=== PATIENT | male | born 1950 | race Caucasian/White ===

== ENCOUNTER 2019-02-26 00:55 | Day surgery (SDC) | payer MEDICARE, BC ==
[2019-02-26] VITALS (12 sets, daily range): BP systolic 105–144; BP diastolic 68–97
[~2019-02-26] VITALS: Ht 185.4 cm; Wt 94.3 kg
[~2019-02-26 00:55] MED LIST: ASPI-1471 PO; CEP500 PO; CINN500C12 PO; CYAN500T54 PO; EZE10 PO; FINA1TAB7 PO; FINA5TAB67 PO; FLAX SEED; GINK1TAB2 PO; GLUC100026 PO; LUTE6CAP11 PO; MULT1TAB64 PO; MULTI VIT; OMEG-36 PO; PLAN450T3 PO; TAMS0.4C70 PO; UBID10CA11 PO; VIT1CAPS34 PO
[2019-02-26] MEDS ORDERED: ACETAMINOPHEN(*)1000 MG/100 ML 0 ML IVPB ONE (07:43)
[2019-02-26] MEDS ORDERED: METOCLOPRAMIDE 10 MG/2 ML SDV ONE (07:55)
[2019-02-26] MEDS ORDERED: ONDANSETRON 4 MG/2 ML VIAL ONE (07:55)
[2019-02-26] MEDS ORDERED: DEXAMETHASONE SOD 4 MG/ML VIAL ONE (07:55)
[2019-02-26] MEDS ORDERED: LIDOCAINE MPF 1% 5 ML VIAL ONE (07:55)
[2019-02-26] MEDS ORDERED: fentaNYL CITR 250 MCG/5 ML AMP ONE (07:55)
[2019-02-26] MEDS ORDERED: PROPOFOL EMUL(*) 10MG/ML 20 ML 20 ML ONE (07:55)
[2019-02-26] MEDS ORDERED: PREGABALIN 150 MG CAPSULE PO ONE (08:00)
[2019-02-26] MEDS ORDERED: ROCURONIUM BR 10 MG/ML 5 ML SY 5 ML ONE ×2 (08:00→10:54)
[2019-02-26] MEDS ORDERED: ACETAMINOPHEN 500 MG TAB PO ONE (08:00)
[2019-02-26] MEDS ORDERED: ceFAZolin(*) 2GM/D5W 50ML 50 ML IVPB ONE (08:00)
[2019-02-26] MEDS ORDERED: NORMOSOL R SOLN(*) 1000 ML BAG 1,000 ML IV PRN (08:40)
[2019-02-26] MEDS ORDERED: MIDAZOLAM 2 MG/2 ML VIAL IVP PRN (08:40)
[2019-02-26] MEDS ORDERED: FAMOTIDINE 20 MG TAB PO ONE (08:40)
[2019-02-26] MEDS ORDERED: LIDOCAINE/SOD BICARB 8.4% SYR ID ONE (08:40)
[2019-02-26 09:04] LABS: PLATELET COUNT, AUTOMATED 189 K/uL (150-450)
[2019-02-26] MEDS ORDERED: ROPIVACAINE 0.5% 20 ML VIAL ONE (09:04)
[2019-02-26] MEDS ORDERED: SUGAMMADEX SOD 200 MG/2 ML SDV ONE (09:59)
[2019-02-26] MEDS ORDERED: NEOMYCIN/POLYMYX/BACITR 30 GM TP ONE (12:24)
[2019-02-26] MEDS ORDERED: fentaNYL CITR 100 MCG/2 ML AMP ONE ×2 (12:55→13:14)
[2019-02-26] MEDS ORDERED: DOCU-416 PO (12:58)
[2019-02-26] MEDS ORDERED: TRAM-420 PO (12:58)
--- NOTE | 2019-02-26 13:01 | Short(Outpt) Discharge Summary ---
Discharge Summary Reason for Hosp/Final Diag: (1) Bilateral inguinal hernia (BIH) Status: Chronic Hospital Course & Plan: Robotic BIH repair completed without problems. (2) Umbilical hernia Status: Chronic Hospital Course & Plan: UH repair (open) without mesh, primary closure with interrupted 0 Ethibond sutures. Departure Discharge to: Home, Self Care Discharge Instructions Home Meds Active Scripts Docusate Sodium (COLACE) 100 Mg Capsule, 1 CAP PO BID, #30 CAP 0 Refills TAKE WITH A FULL GLASS OF WATER Prov:JULIETA FLORES MD 02/26/19 Tramadol Hcl (TRAMADOL HCL) 50 Mg Tablet, 1 TAB PO Q4H PRN for PAIN, #20 TAB 0 Refills Prov:JULIETA FLORES MD 02/26/19 Reported Medications [place]-3 Fatty Acids/Fish Oil (OMEGA 3 FISH OIL SOFTGEL) 1 Each Capsule.dr, 1 EACH PO QDAY 02/23/19 Vit A/Vit C/Vit E/Zinc/Copper (PRESERVISION AREDS SOFTGEL) 1 Each Capsule, 1 EA CH PO QDAY, CAPSULE 02/23/19 Cyanocobalamin (Vitamin B-12) (B-12) Unknown Strength Tablet, 500 MCG PO QDAY 04/24/16 Plant Stanol Patricia (CHOLEST OFF) Unknown Strength Tablet, 450 MG PO QDAY 04/24/16 Lutein (LUTEIN) Unknown Strength Capsule, 6 MG PO QDAY, CAPSULE 04/24/16 Ubidecarenone (CO Q-10) Unknown Strength Capsule, 10 MG PO QDAY, CAPSULE 04/24/16 Multivitamin (MULTI VITAMIN DAILY) 1 Each Tablet, 1 EACH PO QDAY 04/24/16 Finasteride (FINASTERIDE) 5 Mg Tablet, 1 TAB PO QDAY 04/24/16 Tamsulosin Hcl (TAMSULOSIN HCL) 0.4 Mg Cap.er.24h, 0.4 MG PO QDAY 06/21/15 Discontinued Reported Medications Aspirin (ASPIR 81) 81 Mg Tablet.dr, 81 MG PO QDAY, TAB 04/24/16 Cinnamon Bark (CINNAMON) Unknown Strength Capsule, 500 MG PO QDAY, CAPSULE 04/24/16 Glucosamine Sulfate 2KCL (GLUCOSAMINE) Unknown Strength Tablet, 1000 MG PO QDAY 04/24/16 Follow up Referrals: General Surgery - 03/24/19 @ Surgery, General with JULIETA FLORES MD You have a follow up appointment scheduled with Dr. Flores on 03/24/19, at 4:00pm. Diet: Regular Activity: No Heavy Lifting Special Instructions: You may remove the white surgical dressings on 02/28/19, then you can shower. After showering, leave the incisions open to air but leave the steristrips in place until they fall off on their own. Do not immerse the incisions for 2 weeks. Avoid any activity that involves straining or lifting more than 10 pounds for 2 weeks after surgery. Problem Qualifiers (1) Bilateral inguinal hernia (BIH): Obstruction and gangrene presence: without obstruction or gangrene Recurrence: non-recurrent Qualified Codes: K40.20 - Bilateral inguinal hernia, without obstruction or gangrene, not specified as recurrent (2) Umbilical hernia: Obstruction and gangrene presence: without obstruction or gangrene Qualified Codes: K42.9 - Umbilical hernia without obstruction or gangrene JULIETA FLORES MD Feb 26, 2019 13:01
--- NOTE | 2019-02-26 13:09 | Post Operative Progress Note ---
Post Operative Progress Note Date: Feb 26, 2019 Time: 12:57 Surgeon: Connie Dictation number: [id number] Anesthesia: GETA by Dr. Mojica Pre-Op Diagnosis: BIH UH Post-Op Diagnosis: BIH, both indirect UH Findings: Bilateral indirect inguinal hernias, right much large than left Small subcentimeter UH Procedure(s): Robotic BIH repair with progrip mesh open UH without mesh Specimen Removed:(May be N/A): None Complications: None Fluids: See anesthesia record Estimated Blood Loss: Minimal Date OP Note Dictated: Feb 26, 2019 Time OP Note Dictated: 12:58 JULIETA FLORES MD Feb 26, 2019 13:09
--- NOTE | 2019-02-26 14:35 | NUR ---
1215 Given jello and crackers and water. 1220 O2 dipped to 85% when sleeping on 2L n.c. Woke up and performed some deep breathing and coughing O2 bumped up to 92%
[2019-02-26] MEDS ORDERED: traMADol 50 MG TAB ONE (14:40)
--- NOTE | 2019-02-26 15:16 | OPERATIVE REPORT 1 ---
EVENT DATE: February 26, 2019 SURGEON: Mayco Rosales MD ANESTHESIOLOGIST: Mayco Mojica MD ANESTHESIA: General endotracheal. PREOPERATIVE DIAGNOSIS 1. Bilateral inguinal hernias. 2. Umbilical hernia. POSTOPERATIVE DIAGNOSIS 1. Bilateral indirect inguinal hernias. 2. Umbilical hernia. PROCEDURE PERFORMED 1. Robotic bilateral inguinal hernia repair with mesh. 2. Umbilical hernia repair without mesh. COMPLICATIONS None. CONDITION Stable. ESTIMATED BLOOD LOSS Minimal. INDICATIONS This is a 68-year-old gentleman who presented to my office with a main complaint of a right groin bulge. On my examination, he had a large right inguinal hernia and a smaller left inguinal hernia as well as a very small umbilical hernia. I discussed repairing all three of these at the same time and he expressed his wishes to have them all three repaired. He provided consent for robotic bilateral inguinal hernia repairs and an umbilical hernia repair. DESCRIPTION OF PROCEDURE The patient was brought to the operating room and placed supine on the operating table. General endotracheal anesthesia was administered and his abdomen was prepped and draped in sterile fashion. A timeout was completed and I anesthetized the skin in the left upper quadrant and about the mid clavicular line several centimeters above the umbilicus and then made an 8 mm transverse incision, used the Veress needle and accessed the peritoneal cavity and insufflated the abdomen to a pressure of 15 mmHg. I then inserted an 8 mm robotic port with an optical trocar inside with the camera and it focused into the insufflated abdomen under direct visualization without any problems. I then placed another 8 mm robotic port in the supraumbilical midline and a third one in the right mid abdomen all at about the same level relative to the umbilicus. I then inspected both groins and identified bilateral hernias and so I put in bilateral ProGrip mesh and 2 V-Loc sutures into the peritoneal cavity. With the patient in Trendelenburg, brought the robot in, docked and targeted the robot. Inserted the instruments and then scrubbed out and went to the console. I then divided the peritoneum from just medial to both anterior superior iliac spines all the way across the midline and then created the preperitoneal space all the way down to the groins. I identified the pubic tubercle and symphysis in the middle as well as Collins's ligament bilaterally and cleaned off the iliopubic tract on both sides. I then identified the hernias sacs and the left one was very small and most of the bulge was due to fat in the cord and so this was reduced very easily and I stripped the peritoneum away from the cord structures and well proximal to where the cord structures splayed. The vas deferens and gonadal vessels were easily identified and preserved. I turned my attention to the right groin and this was a much bigger defect. In fact, when I first got in and went to the console, there was quite a bit of small bowel in this hernia and I had to gently reduce it without injuring the bowel but this was ultimately done. I then continuing on, identified the cord structures and stripped the sac away from it. The sac was quite large and went down into the scrotum and after working for quite some time, I ultimately ended up dividing the sac and then it from the cord structures. Once I was happy with the dissection, I placed a right-sided ProGrip mesh in first and deployed it so it laid over the pubic tubercle and Collins's ligament medially and over the entire myopectineal arch with several centimeters overlapping on the side. I then placed the left mesh in the same fashion so they were nice and symmetric and covered both the myopectineal arches on both sides with several centimeters of overlap. There was no peritoneum underneath the mesh and the peritoneal edge was well below where the edges of the meshes were. I then closed the peritoneal incision with a running V-Loc absorbable suture. I then closed the divided hernia sac which I inverted into the peritoneal cavity with running V-Loc sutures. At this point it looked great and so I removed all of the sutures and needles from the patient's abdomen. I removed the robotic instruments, undocked the robot. The bed was flattened and his abdomen was desufflated and the ports were removed and then I proceeded repairing the umbilical hernia. I injected the infraumbilical skin with 0.5% ropivacaine plain and made a curvilinear smiley-face incision in the infraumbilical rim. I dissected through the dermis and subcutaneous fat, dissected bluntly around the umbilical stalk and then divided the umbilical stalk to raise the umbilicus off the underlying fascia. I then clearly identified about an 8 mm fascial defect and there was not much protruding through it at the time of the surgery. I cleaned off the preperitoneal space circumferentially and then decided not to push mesh in due to the small size of the fascial defect. I then closed the fascial defect after cleaning it off on the superficial and deep sides with interrupted 0 Ethibond sutures in a transverse fashion. I then irrigated and dried this wound and then sutured the umbilical stalk down to the fascia with a single 3-0 Vicryl suture. I then closed the skin on all of these incisions with 4-0 Monocryl subcuticular sutures. The skin was cleaned and dried and Steri-Strips were applied followed by sterile surgical dressings. The patient was then awakened and extubated in the operating room and transported to the recovery room in stable condition having tolerated the procedures without any apparent problems. ROCKY
== END 2019-02-26 13:55 | disposition home or self-care (01) ==
LOC: OR 00:55
PROVIDERS: ATTEND Surgery
DX: K40.20 Bilateral inguinal hernia, without obstruction or gangrene, not specified as recurrent (principal); K42.9 Umbilical hernia without obstruction or gangrene
CPT/HCPCS: 49585; 49650; 85025; A9270; C1781; J1100; J2001; J2405; J2704; J2765; J2795; J3010; S2900; J0131; J0690